=== PATIENT | female | born 1940 | race Caucasian/White ===

== ENCOUNTER → 2016-10-19 | Outpatient (CLI) | payer BC ==
[~2016-10-19] MED LIST: ASPCH81X PO; CALC-20 PO; CHOL200010 PO; GADAVIST IV PRN; LEVO75TA36 PO; MULT-506 PO; SIMV20TA2 PO; TRIA37.5 PO
--- NOTE | 2016-10-20 13:53 | MAMMOGRAPHY REPORT ---
BREAST MRI OF BOTH BREASTS : 10/19/2016 CLINICAL HISTORY: Breast MRI for continued surveillance. Patient has a history of right breast cance r status post breast conservation treatment. Patient also reports a chronic lump in the upper inner quadrant of the left breast, which was marked with a skin marker. COMPARISON: Comparison is made to exams dated: 04/19/2016 mammogram, 09/04/2015 breast MRI, 09/04/2015, 08/16/2013 08/12/2014 breast MRI, 01/30/2013 mammogram, and 01/10/2012 mammogram - [facility]. TECHNIQUE: Using a 1.5 Gerda magnet and dedicated breast coil, multisequence axial images were obtain ed through the breasts. After uneventful IV administration of 7.5 mL of Gadavist, dynamic multiphase contrast-enhanced axial images, and sagittal postcontrast were obtained. Temporal subtraction axial images and 3-D MIP images are provided. Everything was then reviewed on a 3-D workstation, [employer]. FINDINGS: Right breast: There is minimal background parenchymal enhancement of the right breast. Expected arch itectural distortion in the upper inner posterior right breast, with areas of susceptibility artifact , compatible with the lumpectomy bed. No suspicious enhancing mass, non-mass enhancement or suspicio us kinetics are seen within the right breast. No focal skin thickening or nipple retraction. No emma picious right axillary, subpectoral or internal mammary lymphadenopathy. Left breast: There is mild to moderate background parenchymal enhancement of the left breast. All of the enhancing foci appear very similar dating back to the August 2013 MRI, suggesting they represent ba ckground enhancement. A linear palpable marker overlies the upper inner anterior approximate 10:00 a xis of the left breast denoting the palpable lump reported by the patient. There is no new suspiciou s enhancing mass, non-mass enhancement, focal area of architectural distortion or suspicious kinetics are identified in the left breast, with particular attention to the area of palpable lump. A tiny a donna of susceptibility artifact is seen in the 9:00 anterior left breast, likely denoting the site of prior ultrasound-guided core biopsy and biopsy marker clip. No focal skin thickening or nipple retra ction. No suspicious left axillary, subpectoral or internal mammary lymphadenopathy. Note is made of mild thickening of the right anterior pleura, likely secondary to prior radiation the rapy. IMPRESSION: ACR BI-RADS CATEGORY 2: BENIGN 1. Stable bilateral breast MRI, without MRI evidence of malignancy in the breasts. 2. No suspicious enhancing mass or MRI abnormality to correspond to the area of palpable lump in the left breast, identified by the patient. Continued clinical monitoring is suggested. 3. Also recommend continuation of screening annual mammography schedule. The patient will receive written notification of the results. Anjelica Hare M.D. ay/:10/19/2016 16:27:05 Business Continuity Manager: clinical safety specialist, [facility] letter sent: Normal 1/2 BI-RADS Code: ACR BI-RADS Category 2: Benign
== END | disposition home or self-care (01) ==
LOC: C.MRI 10:49
PROVIDERS: ATTEND Nurse Practitioner Family
DX: Z08 Encounter for follow-up examination after completed treatment for malignant neoplasm (principal); C50.211 Malignant neoplasm of upper-inner quadrant of right female breast

== ENCOUNTER 2017-04-01 10:22 | Emergency (ER) | payer BC ==
[~2017-04-01] VITALS: Ht 165.1 cm; Wt 73.4 kg
[~2017-04-01 10:22] MED LIST changes: -GADAVIST IV PRN
[2017-04-01 10:30] VITALS: TEMP 36.6; Ht 165.1 cm; Wt 73.4 kg
[2017-04-01] MEDS ORDERED: LEVO75TA5 PO (10:33)
[2017-04-01] MEDS ORDERED: FAMO1TAB47 PO (10:33)
[2017-04-01] MEDS ORDERED: CZR50 PO (10:33)
[2017-04-01] MEDS ORDERED: MELO7.5T5 PO (10:33)
[2017-04-01] MEDS ORDERED: ULT50 PO (10:33)
--- NOTE | 2017-04-01 10:48 | EMERGENCY ROOM VISIT NOTE ---
ED Visit Note First contact with patient: 10:47 CHIEF COMPLAINT: Left Shoulder pain, left arm weakness HISTORY OF PRESENT ILLNESS: This 76-year-old female patient presents to the emergency department ambulatory, with her , complaining of pain in the left shoulder 2 days. The patient was seen by her PCP yesterday and was given prescriptions for meloxicam and tramadol. The patient states she took a dose of meloxicam 6:30 PM. She continued to have pain at 9:30, so took some tramadol. She did take another dose of tramadol this morning. She states at approximately 2 AM, she awoke to use the restroom. While reaching for toilet paper, she noticed that she was unable to reach with the left arm, however she was not in pain. She states she went back to sleep, but when she awoke, she was having difficulty getting dressed, and noticed again that she could not reach or lift her left arm at the shoulder, and the arm will not stay elevated when she attempts to hold it up. The patient describes the pain as sharp when it flares. She states it is in the lateral aspect of her shoulder, radiating up her arm and into her neck. She states activity and using the arm seems to make it worse. The pain is moderate and constant. She states the tramadol does help with the pain. She is most concerned about the weakness. The patient states the pain is a constant ache and 6/10. No previous significant previous shoulder disease or injury. No numbness or tingling. No chest pain or shortness of breath. No abdominal pain or nausea/vomiting. No cough. No confusion, dizziness, vomiting, dyspnea, chest pain, visual disturbances, slurred speech, facial droop, or LE symptoms. The patient has had a mild headache, nausea associated with pain, and states the left hand feels swollen, however it does not look swollen. REVIEW OF SYSTEMS: A 6 system review of systems was performed with positives and pertinent negatives in the HPI. ALLERGIES: PCN, Sulfa MEDICATIONS: See list PMH: Hyperlipidemia, HTN, Breast Cancer SOCIAL HISTORY: The patient lives locally with family. She denies drug, alcohol , tobacco use. PHYSICAL EXAM: Vital Signs: Reviewed nurse's notes, vital signs stable. GENERAL : This is a 76yo white female, in no acute distress, but appears to be in pain, well-developed, well-nourished. MUSCULOSKELETAL: There is no deformity in the contour of the left shoulder and there are no claudia deformities noted. There is no sulcus sign. There is tenderness over the posterior shoulder muscles. The patient's range of motion is limited significantly due to weakness in the LUE. Supraspinatus strength 3/5. There is no clavicle tenderness. No tenderness of the humerus, elbow, wrist, or hand. Electrical Technology Instructor strength 3/5 on the left. Radial pulse 2+. NECK: No tenderness to palpation over the cervical spine. Tenderness of the left trapezius muscle in the neck. NEURO: The patient is alert, oriented to person place and time, and coherent. Normal mini mental status exam. Positive Pronator drift on the left. Negative Romberg. Cerebellar function intact. HEART: Regular rate and rhythm without murmurs gallops or rubs. LUNGS: Clear to auscultation bilaterally without wheezes, rales or rhonchi. No accessory muscle use. No retractions. LABS: CBC was without leukocytosis, anemia, thrombocytopenia. Coagulation studies were normal. Urinalysis did not show signs of infection. PRP did not show significant renal abnormalities. No significant electrolyte abnormalities. Troponin was ordered, but the lab was unable to perform the test. RADIOLOGY: CT SCAN OF THE BRAIN WITHOUT IV CONTRAST CLINICAL HISTORY: Left upper extremity numbness. Neck pain. COMPARISON STUDY: CT of the brain dated 03/01/2014. TECHNIQUE: Unenhanced axial CT scan of the brain is performed from the vertex to the skull base. A dose lowering technique was utilized adhering to the principles of ALARA. FINDINGS: Brain parenchyma: There are age-related involutional changes noting mild subcortical and periventricular microangiopathic change. There is no hemorrhage, mass effect, or evidence of acute territorial ischemia by CT criteria. Carney-white matter is preserved. No extra-axial fluid collection is seen. Ventricles, sulci, cisterns: Prominent secondary to involutional change. Intracranial vasculature: There is atherosclerotic calcification of the cavernous carotid and vertebral arteries. Calvarium: Unremarkable. Sinuses and mastoids: There is a retention cyst in the right frontal sinus. Mild mucosal thickening is seen in the ethmoid and sphenoid sinuses. The mastoid air cells are well pneumatized. Orbits: The bony orbits are grossly intact. IMPRESSION: There is no hemorrhage, mass effect, or evidence of acute territorial ischemia by CT criteria. Electronically signed by: Jose Antoine M.D. 04/01/2017 12:06 PM Dictated Date/Time: 04/01/2017 12:[address] SCAN OF THE CERVICAL SPINE CLINICAL HISTORY: Neck pain. Left arm numbness. COMPARISON STUDY: MRI of the cervical spine dated 03/26/2013. TECHNIQUE: CT scan of the cervical spine is performed from the skull base to the upper thoracic spine. Images are reviewed in the axial, sagittal, and coronal planes. IV contrast was not administered for this examination. A dose lowering technique was utilized adhering to the principles of ALARA. CT DOSE: 989.85 mGy.cm FINDINGS: Skeletal structures: The skeletal structures are osteopenic. There is no evidence of fracture or subluxation involving the cervical spine. Vertebral body height is maintained. There is minimal anterolisthesis at C4-C5. Alignment is otherwise preserved. There is near complete fusion of the right posterior elements at C2-C3. There is straightening of the cervical lordosis. The odontoid process and lateral masses are intact. The atlantoaxial articulation is preserved noting advanced productive degenerative change. Anterior osteophytes are seen in the lower cervical region. The spinous processes appear intact. There is moderate to advanced multilevel cervical spondylosis. Uncovertebral and facet arthropathy contribute to multilevel neural foraminal stenosis. This is severe on the right at C3-C4, C4-C5, an C5-C6. This is severe on the left at C4-C5, C5-C6, and C6-C7. Intervertebral discs: Moderate disc space narrowing seen at C5-C6 and C6-C7. The remaining disc spaces appear maintained. Central canal: Posterior disc osteophyte complexes at C5-C6 and C6-C7 likely contribute to acquired compromise of the central canal. Soft tissues: The prevertebral and paraspinous soft tissues are within normal limits. Atherosclerotic calcification is noted in the carotid bulbs. Calvarium: The visualized calvarium at the skull base appears intact. Brain parenchyma: Partially visualized brain parenchyma the skull base is within normal limits. Sinuses and mastoids: Trace mucosal thickening is present in the sphenoid sinuses. The mastoid air cells are well pneumatized. Lung apices: Apical scarring is observed. Partially imaged apical lung parenchyma is otherwise clear as visualized. IMPRESSION: 1. There is no evidence of fracture or subluxation involving the cervical spine. 2. Osteopenia and spondylotic change as above. Electronically signed by: Jose Antoine M.D. 04/01/2017 12:14 PM Dictated Date/Time: 04/01/2017 12:09 PM CHEST ONE VIEW PORTABLE HISTORY: Left shoulder pain. Stroke COMPARISON: Chest 10/16/2014. FINDINGS: No pleural effusions. No pneumothorax. The heart is normal in size. Punctate calcified granuloma within the right upper lobe, unchanged. Surgical clips within the right breast/axilla. IMPRESSION: No significant change compared to the prior study. No acute process. Electronically signed by: Franklin Myers M.D. 04/01/2017 12:13 PM Dictated Date/Time: 04/01/2017 12:12 PM LEFT SHOULDER 3 VIEWS HISTORY: Left shoulder pain, decreased ROM COMPARISON: None. FINDINGS: There is no fracture or dislocation. Soft tissues are unremarkable. The left clavicle is intact. Questionable lucency within the proximal medial metaphysis of the left humerus best seen on image 3. This is similar to the 2009 left clavicle series. Therefore, this is likely a normal variant or benign. IMPRESSION: No fracture or dislocation within the left shoulder. Electronically signed by: Franklin Myers M.D. 04/01/2017 12:07 PM Dictated Date/Time: 04/01/2017 11:55 AM EKG: NSR with rate of 72 BPM. No signs of ischemia. No ST elevation, depression , or inverted T-waves noted. EMERGENCY DEPARTMENT COURSE: I examined the patient. I was concerned due to the positive pronator drift and weakness of the left upper extremity. I contacted Dr. Pennington to see and evaluate the patient. He did independently see and evaluate the patient. We were both concerned due to the patient's symptoms and obvious weakness and pronator drift, that a stroke workup was initiated. The patient was moved from room D4 to C11. Imaging and labs were performed as outlined previously. No obvious acute causes of the patient's symptoms. I do suspect a cervical radiculopathy as the cause of the patient's symptoms. I suspect musculoskeletal pain and possible tendinitis. I recommended ongoing treatment with anti-inflammatories, muscle relaxers, and tramadol. The patient did request pain medication while in the emergency department. She was given a dose of tramadol, but declined muscle relaxers. Prescription for Flexeril was sent to the pharmacy. The patient and her were in agreement with the assessment and plan were pleased with her care. The patient was discharged home in good condition. Of note, the lab did attempt to perform a troponin test twice. This was unsuccessful. The patient is not experiencing any chest pain, and she did not have any suspicious findings on her EKG. I attest that I have personally reviewed the patient's current medication list. The patient's blood pressure was elevated throughout her visit. The patient is uncertain if she took her BP medication. She will continue to monitor and f/u with her PCP. DIFFERENTIAL DIAGNOSIS: CVA, TIA, KS, ACS, tendinitis, dislocation, fracture, calcific tendinitis, subluxation, contusion, malignancy, and others DIAGNOSIS: Shoulder pain, tendinitis, left arm weakness Problem List Medical Problems: (1) Breast cancer Status: Chronic Surgical Problems: (1) Status post right breast lumpectomy Status: Resolved Current/Historical Medications Scheduled Aspirin (Aspirin Chewable), 81 MG PO Q2D Calcium Carbonate-Vitamin D (Calcium 600 + D), 1 TAB PO DAILY Cholecalciferol (Vitamin D), 2,000 UNIT PO DAILY Cyclobenzaprine Hcl (Flexeril), 5 MG PO TID Famotidine (Famotidine), 20 MG PO DAILY Levothyroxine Sodium (Levothyroxine Sodium), 75 MCG PO QPM Losartan Potassium (Losartan Potassium), 50 MG PO DAILY Meloxicam (Mobic), 7.5 MG PO BID Multivitamin (Multivitamin), 1 TAB PO DAILY Simvastatin (Zocor), 20 MG PO QPM Scheduled PRN Tramadol HCl (Tramadol HCl), 50 MG PO Q8 PRN for Pain Allergies Coded Allergies: Sulfa Drugs (Unverified Allergy, Mild, UNKNOWN, 04/01/17) Penicillins (Verified Allergy, Unknown, 04/01/17) Vital Signs Date Time Temp Pulse Resp B/P (MAP) Pulse Ox O2 Delivery O2 Flow Rate FiO2 04/01/17 15:05 71 16 185/91 98 Room Air 04/01/17 13:55 68 15 186/87 98 Room Air 04/01/17 12:18 75 04/01/17 12:07 97 Room Air 04/01/17 12:00 74 12 185/86 96 Room Air 12/29/17 10:30 36.6 79 18 98 Room Air Laboratory Results 04/01/17 11:27 Red Blood Count 4.92, Mean Corpuscular Volume 94.1, Mean Corpuscular Hemoglobin 32.9, Mean Corpuscular Hemoglobin Concent 35.0, Mean Platelet Volume 12.1, Neutrophils (%) (Auto) 58.7, Lymphocytes (%) (Auto) 29.8, Monocytes (%) (Auto) 5.7, Eosinophils (%) (Auto) 5.4, Basophils (%) (Auto) 0.3, Neutrophils # (Auto) 4.63, Lymphocytes # (Auto) 2.35, Monocytes # (Auto) 0.45, Eosinophils # (Auto) 0.43, Basophils # (Auto) 0.02 04/01/17 05:58 Test 04/01/17 05:58 04/01/17 11:27 04/01/17 11:31 04/01/17 12:13 Anion Gap 2.0 mmol/L (3-11) Est Creatinine Clear Calc Drug Dose 35.3 ml/min Estimated GFR () 43.7 Estimated GFR (Non- 37.7 BUN/Creatinine Ratio 17.6 (10-20) Calcium Level 9.9 mg/dl (8.5-10.1) Magnesium Level 2.1 mg/dl (1.8-2.4) Total Creatine Kinase 117 U/L (26-192) Creatine Kinase MB 2.8 ng/ml (0.5-3.6) Creatine Kinase MB Ratio 2.4 (0-3.0) White Blood Count 7.89 K/uL (4.8-10.8) Red Blood Count 4.92 M/uL (4.2-5.4) Hemoglobin 16.2 g/dL (12.0-16.0) Hematocrit 46.3 % (37-47) Mean Corpuscular Volume 94.1 fL (80-100) Mean Corpuscular Hemoglobin 32.9 pg (25-34) Mean Corpuscular Hemoglobin Concent 35.0 g/dl (32-36) Platelet Count 145 K/uL (130-400) Mean Platelet Volume 12.1 fL (7.4-10.4) Neutrophils (%) (Auto) 58.7 % Lymphocytes (%) (Auto) 29.8 % Monocytes (%) (Auto) 5.7 % Eosinophils (%) (Auto) 5.4 % Basophils (%) (Auto) 0.3 % Neutrophils # (Auto) 4.63 K/uL (1.4-6.5) Lymphocytes # (Auto) 2.35 K/uL (1.2-3.4) Monocytes # (Auto) 0.45 K/uL (0.11-0.59) Eosinophils # (Auto) 0.43 K/uL (0-0.5) Basophils # (Auto) 0.02 K/uL (0-0.2) RDW Standard Deviation 45.9 fL (36.4-46.3) RDW Coefficient of Variation 13.5 % (11.5-14.5) Immature Granulocyte % (Auto) 0.1 % Immature Granulocyte # (Auto) 0.01 K/uL (0.00-0.02) Prothrombin Time 10.0 SECONDS (9.0-12.0) Prothromb Time International Ratio 1.0 (0.9-1.1) Activated Partial Thromboplast Time 25.0 SECONDS (21.0-31.0) Partial Thromboplastin Ratio 1.0 Bedside Prothrombin Time INR 1.0 (0.9-1.1) Bedside Glucose 96 mg/dl (70-90) Urine Color YELLOW Urine Appearance CLEAR (CLEAR) Urine pH 8.0 (4.5-7.5) Urine Specific [place] 1.012 (1.000-1.030) Urine Protein NEG (NEG) Urine Glucose (UA) NEG (NEG) Urine Ketones NEG (NEG) Urine Occult Blood NEG (NEG) Urine Nitrite NEG (NEG) Urine Bilirubin NEG (NEG) Urine Urobilinogen NEG (NEG) Urine Leukocyte Esterase NEG (NEG) Test 04/01/17 13:27 Troponin I ng/ml (0-0.045) Medications Administered Medications (Trade) Dose Ordered Sig/[place] Route Start Time Stop Time Status Last Admin Dose Admin Sodium Chloride 1,000 ml @ 50 mls/hr Q20H IV 04/01/17 11:14 04/01/17 15:43 DC 04/01/17 11:14 50 MLS/HR Tramadol HCl (Ultram Tab) 50 mg NOW STAT PO 04/01/17 14:27 04/01/17 14:28 DC 04/01/17 14:36 50 MG Departure Information Impression Primary Impression: Left shoulder tendinitis Additional Impressions: Left arm weakness Cervical radiculopathy Dispostion Home / Self-Care Condition GOOD Prescriptions Cyclobenzaprine Hcl (FLEXERIL) 5 Mg Tab 5 MG PO TID, #15 TAB PRN Prov: Nhi eLe PA-C 04/01/17 Referrals Judi Keith M.D. (PCP) Patient Instructions ED Cervical Radiculopathy, ED Weakness [facility], [facility] Additional Instructions You were seen in the emergency department today for left arm weakness and left shoulder pain. I do suspect a cervical radiculopathy as the cause of the weakness and decreased sensation. I suspect a tendon/muscle injury or overuse injury as the cause of the symptoms. You may continue to use the tramadol which was prescribed to you. You have been prescribed Flexeril (cyclobenzaprine) 1 tabs orally, three times per day. Do NOT exceed 30 mg (6 tabs) per day. Take your first dose at bedtime as it can make you drowsy. Always take all medications as prescribed. Continue taking meloxicam as prescribed. This will help with inflammation. You may take Tylenol (acetaminophen) for breakthrough pain. You may use up to 1000 mg 3 times daily. Do not exceed 3000 mg in 24 hours. Please follow up with your PCP within the next week. Return to the emergency department for worsening pain, numbness, tingling, confusion, dizziness, visual disturbances, increasing weakness, slurred speech, facial droop, or other concerning symptoms. Problem Qualifiers
[2017-04-01] MEDS ORDERED: SODIUM CHLORIDE 0.9% 1000ML 1,000 ML IV SCH (11:14)
--- NOTE | 2017-04-01 11:15 | EMERGENCY ROOM VISIT NOTE ---
ED Visit Note First contact with patient: 10:47 This Patient was discussed with the physician orthopaedic physician assistant, Nhi Lee PA-C. The pertinent historical and physical exam findings were confirmed. I agree with the studies ordered and with the interpretations of these studies. I agree with the disposition and care plan.
[2017-04-01 11:55] LABS: BASO % 0.3 %; BASO ABS # 0.02 K/uL (0-0.2); EOS % 5.4 %; EOS ABS # 0.43 K/uL (0-0.5); HEMATOCRIT 46.3 % (37-47); HEMOGLOBIN 16.2 g/dL (12.0-16.0); IG# 0.01 K/uL (0.00-0.02); LYMPH % 29.8 %; LYMPH ABS # 2.35 K/uL (1.2-3.4); MEAN CELL VOLUME 94.1 fL (80-100); MEAN CORPUSCULAR HEMOGLOBIN 32.9 pg (25-34); MEAN PLATELET VOLUME 12.1 fL (7.4-10.4); MONO % 5.7 %; MONO ABS # 0.45 K/uL (0.11-0.59); NEUT % 58.7 %; NEUT ABS # 4.63 K/uL (1.4-6.5); PLATELET COUNT 145 K/uL (130-400); RED CELL DISTRIBUTION WIDTH CV 13.5 % (11.5-14.5); RED CELL DISTRIBUTION WIDTH SD 45.9 fL (36.4-46.3); WHITE BLOOD COUNT 7.89 K/uL (4.8-10.8)
[2017-04-01 12:07] VITALS: O2SAT 97
--- NOTE | 2017-04-01 12:08 | DIAGNOSTIC IMAGING REPORT ---
CT SCAN OF THE BRAIN WITHOUT IV CONTRAST CLINICAL HISTORY: Left upper extremity numbness. Neck pain. COMPARISON STUDY: CT of the brain dated 03/01/2014. TECHNIQUE: Unenhanced axial CT scan of the brain is performed from the vertex to the skull base. A dose lowering technique was utilized adhering to the principles of ALARA. FINDINGS: Brain parenchyma: There are age-related involutional changes noting mild subcortical and periventricular microangiopathic change. There is no hemorrhage, mass effect, or evidence of acute territorial ischemia by CT criteria. Carney-white matter is preserved. No extra-axial fluid collection is seen. Ventricles, sulci, cisterns: Prominent secondary to involutional change. Intracranial vasculature: There is atherosclerotic calcification of the cavernous carotid and vertebral arteries. Calvarium: Unremarkable. Sinuses and mastoids: There is a retention cyst in the right frontal sinus. Mild mucosal thickening is seen in the ethmoid and sphenoid sinuses. The mastoid air cells are well pneumatized. Orbits: The bony orbits are grossly intact. IMPRESSION: There is no hemorrhage, mass effect, or evidence of acute territorial ischemia by CT criteria. Electronically signed by: Jose Antoine M.D. 04/01/2017 12:06 PM Dictated Date/Time: 04/01/2017 12:04 PM
--- NOTE | 2017-04-01 12:08 | DIAGNOSTIC IMAGING REPORT ---
LEFT SHOULDER 3 VIEWS HISTORY: Left shoulder pain, decreased ROM COMPARISON: None. FINDINGS: There is no fracture or dislocation. Soft tissues are unremarkable. The left clavicle is intact. Questionable lucency within the proximal medial metaphysis of the left humerus best seen on image 3. This is similar to the 2009 left clavicle series. Therefore, this is likely a normal variant or benign. IMPRESSION: No fracture or dislocation within the left shoulder. Electronically signed by: Franklin Myers M.D. 04/01/2017 12:07 PM Dictated Date/Time: 04/01/2017 11:55 AM
--- NOTE | 2017-04-01 12:14 | DIAGNOSTIC IMAGING REPORT ---
CHEST ONE VIEW PORTABLE HISTORY: Left shoulder pain. Stroke COMPARISON: Chest 10/16/2014. FINDINGS: No pleural effusions. No pneumothorax. The heart is normal in size. Punctate calcified granuloma within the right upper lobe, unchanged. Surgical clips within the right breast/axilla. IMPRESSION: No significant change compared to the prior study. No acute process. Electronically signed by: Franklin Myers M.D. 04/01/2017 12:13 PM Dictated Date/Time: 04/01/2017 12:12 PM
--- NOTE | 2017-04-01 12:15 | DIAGNOSTIC IMAGING REPORT ---
CT SCAN OF THE CERVICAL SPINE CLINICAL HISTORY: Neck pain. Left arm numbness. COMPARISON STUDY: MRI of the cervical spine dated 03/26/2013. TECHNIQUE: CT scan of the cervical spine is performed from the skull base to the upper thoracic spine. Images are reviewed in the axial, sagittal, and coronal planes. IV contrast was not administered for this examination. A dose lowering technique was utilized adhering to the principles of ALARA. CT DOSE: 989.85 mGy.cm FINDINGS: Skeletal structures: The skeletal structures are osteopenic. There is no evidence of fracture or subluxation involving the cervical spine. Vertebral body height is maintained. There is minimal anterolisthesis at C4-C5. Alignment is otherwise preserved. There is near complete fusion of the right posterior elements at C2-C3. There is straightening of the cervical lordosis. The odontoid process and lateral masses are intact. The atlantoaxial articulation is preserved noting advanced productive degenerative change. Anterior osteophytes are seen in the lower cervical region. The spinous processes appear intact. There is moderate to advanced multilevel cervical spondylosis. Uncovertebral and facet arthropathy contribute to multilevel neural foraminal stenosis. This is severe on the right at C3-C4, C4-C5, an C5-C6. This is severe on the left at C4-C5, C5-C6, and C6-C7. Intervertebral discs: Moderate disc space narrowing seen at C5-C6 and C6-C7. The remaining disc spaces appear maintained. Central canal: Posterior disc osteophyte complexes at C5-C6 and C6-C7 likely contribute to acquired compromise of the central canal. Soft tissues: The prevertebral and paraspinous soft tissues are within normal limits. Atherosclerotic calcification is noted in the carotid bulbs. Calvarium: The visualized calvarium at the skull base appears intact. Brain parenchyma: Partially visualized brain parenchyma the skull base is within normal limits. Sinuses and mastoids: Trace mucosal thickening is present in the sphenoid sinuses. The mastoid air cells are well pneumatized. Lung apices: Apical scarring is observed. Partially imaged apical lung parenchyma is otherwise clear as visualized. IMPRESSION: 1. There is no evidence of fracture or subluxation involving the cervical spine. 2. Osteopenia and spondylotic change as above. Electronically signed by: Jose Antoine M.D. 04/01/2017 12:14 PM Dictated Date/Time: 04/01/2017 12:09 PM
[2017-04-01 12:18] LABS: CALCIUM 9.9 mg/dl (8.5-10.1); CREATININE 1.36 mg/dl (0.60-1.20); POTASSIUM 4.2 mmol/L (3.5-5.1)
[2017-04-01 12:23] LABS: CKMB 2.8 ng/ml (0.5-3.6)
[2017-04-01] MEDS ORDERED: TRAMADOL HCL 50 MG TAB PO STA (14:27)
[2017-04-01 15:05] VITALS: BP 185/91; PULSE 71; O2SAT 98
[2017-04-01] MEDS ORDERED: CYCL5TAB PO (15:05)
== END 2017-04-01 15:15 | disposition home or self-care (01) ==
LOC: C.EDB 10:23 → C.EDC 15:15
DX: M75.92 Shoulder lesion, unspecified, left shoulder (principal); M54.12 Radiculopathy, cervical region; E78.5 Hyperlipidemia, unspecified; I10 Essential (primary) hypertension; Z85.3 Personal history of malignant neoplasm of breast; Z79.82 Long term (current) use of aspirin; Z79.899 Other long term (current) drug therapy

== ENCOUNTER → 2017-04-21 | Outpatient (CLI) | payer BC | END | disposition home or self-care (01) | LOC: C.MRIBC 10:02 | DX: M48.02 Spinal stenosis, cervical region (principal) ==

== ENCOUNTER → 2017-04-21 | Outpatient (CLI) | payer BC | END | disposition home or self-care (01) | LOC: C.MAMM 09:16 | DX: Z12.31 Encounter for screening mammogram for malignant neoplasm of breast (principal); Z85.3 Personal history of malignant neoplasm of breast ==